=== PATIENT | male | born 1985 | race Two or more races ===

== ENCOUNTER 2019-01-23 09:05 | Emergency (ER) | payer SELFPAY ==
[~2019-01-23] VITALS: Ht 172.7 cm; Wt 68.0 kg
--- NOTE | 2019-01-23 09:25 | NUR ---
ED Nurse Note: pt relates that he did drugs before and that he wont say what. states he has no pain. that he wants to go do more drugs. a/ox4 but has random discussions with "going to [facility] that brought him in" .denies SI. cooperative with care at this time. denies ability to void at this time, other labs pending
[2019-01-23 09:44] VITALS: BP 133/87
[2019-01-23 11:00] VITALS: BP 119/81
--- NOTE | 2019-01-23 11:10 | NUR ---
ED Nurse Note: pt states he cant void at this time until he has water. water given to pt. pt refusing straight cath.
--- NOTE | 2019-01-23 11:35 | NUR ---
ED Nurse Note: pt voiding urine, sent as ordered. remains cooperative and calm at this time.
[2019-01-23 13:01] VITALS: BP 122/71
--- NOTE | 2019-01-23 13:02 | NUR ---
ER DISCHARGE NOTE: Patient is cleared to be discharged per ERMD, pt is aox4, on room air, with stable vital signs. pt was given dc instructions, pt was able to verbalize understanding, pt id band and iv site removed without complications. pt is able to ambulate with steady gait. pt took all belongings.
--- NOTE | 2019-01-23 14:00 | Emergency Room Report ---
History of Present Illness General Chief Complaint: Altered Level of Consciousness Source: Patient Present Illness HPI It was reported that the patient had been recently discharged from the [facility] he was now brought in for reports of confusion and altered mental status Upon arrival the patient is awake verbal At times laughing and giggling He reports that he feels well And does not want to be here Denies any chest pain denies any abdominal pain denies any vomiting or diarrhea Allergies: Coded Allergies: No Known Allergies (Unverified , 01/23/19) Patient History Past Medical History: see triage record Pertinent Family History: none Reviewed Nursing Documentation: PMH: Agreed; PSxH: Agreed Nursing Documentation-PMH Past Medical History: No History, Except For History Of Psychiatric Problem: Yes - substance abuse Review of Systems All Other Systems: negative except mentioned in HPI Physical Exam Vital Signs Date Time Temp Pulse Resp B/P (MAP) Pulse Ox O2 Delivery O2 Flow Rate FiO2 01/23/19 09:00 98.8 62 16 131/88 (102) 100 Room Air Sp02 EP Interpretation: reviewed, normal General Appearance: well appearing, no apparent distress Head: normocephalic, atraumatic Eyes: bilateral eye PERRL, bilateral eye EOMI ENT: hearing grossly normal, normal pharynx Neck: full range of motion, supple Respiratory: lungs clear, no retraction, no accessory muscle use Cardiovascular #1: regular rate, rhythm Gastrointestinal: non tender, soft Musculoskeletal: normal inspection Neurologic: alert, oriented x3, responsive Psychiatric: other - Initially patient appeared to be giggling, reported that he felt fine, reports that he has no family to contact, initially denied drug abuse however later does admit to amphetamine abuse Skin: normal color, no rash Lymphatic: no adenopathy Medical Decision Making Diagnostic Impression: Primary Impression: drug abuse ER Course Multiple differentials and consideration patient's Accu-Chek is normal Drug screen does reveal amphetamine positive which correlates with the patient' s clinical history later on He is allowed to rest and sober clinically appropriate GCS 15 Refusing any further assistance and discharged with full decision-making capacity Labs Test 01/23/19 09:20 01/23/19 11:30 Serum Alcohol < 3 mg/dL Urine Opiates Screen Negative (NEGATIVE) Urine Barbiturates Screen Negative (NEGATIVE) Phencyclidine (PCP) Screen Negative (NEGATIVE) Urine Amphetamines Screen Positive (NEGATIVE) Urine Benzodiazepines Screen Negative (NEGATIVE) Urine Cocaine Screen Negative (NEGATIVE) Urine Marijuana (THC) Screen Negative (NEGATIVE) Last Vital Signs Date Time Temp Pulse Resp B/P (MAP) Pulse Ox O2 Delivery O2 Flow Rate FiO2 01/23/19 13:01 98.6 60 18 122/71 99 Room Air Status: improved Disposition: HOME, SELF-CARE Condition: Improved Scripts No Active Prescriptions or Reported Meds Referrals: NON PHYSICIAN (PCP) [facility] [place] Ozzy Moncada Comp. [facility] Patient Instructions: Stimulant Use Disorder-Amphetamines, Finding Treatment for Addiction Additional Instructions: Patient is provided with the discharge instructions notified to follow up with primary doctor in the next 2-3 days otherwise return to the er with any worsening symptoms. Please note that this report is being documented using [employer] technology. This can lead to erroneous entry secondary to incorrect interpretation by the dictating instrument. Juan Lundberg DO Jan 23, 2019 14:00
== END 2019-01-23 13:02 | disposition home or self-care (01) ==
LOC: EDBD 09:05 → EMR 09:26
DX: F15.10 Other stimulant abuse, uncomplicated (principal)
CPT/HCPCS: 36415; 80307; 82962; 99283; G0480; 80329